=== PATIENT | male | born 1965 | race Caucasian/White ===

== ENCOUNTER 2023-04-22 07:55 | Emergency (ER) | payer BC ==
[~2023-04-22] VITALS: Ht 182.9 cm; Wt 93.2 kg
[2023-04-22 08:01] VITALS: TEMP 97.5
[2023-04-22 09:13] LABS: BASO % 0.8 % (0.0-2.0); EOS # 0.1 K/mm3 (0.0-0.7); EOS % 1.3 % (0.0-4.0); GRAN # 3.2 K/mm3 (1.4-6.5); GRAN % 68.7 % (42.2-75.2); HEMATOCRIT 42.6 % (42.0-52.0); LYMPH % 20.3 % (20.0-51.0); MEAN CELL VOLUME 96 fl (80.0-100.0); MEAN CORPUSCULAR HEMOGLOBIN 34 pg (27-31); MEAN CORPUSCULAR HGB CONC 35 g/dl (33.0-37.0); MONO # 0.4 K/mm3 (0.1-0.6); MONO % 8.5 % (1.7-9.3); PLATELET COUNT 213 K/mm3 (130-400); RED BLOOD COUNT 4.43 M/mm3 (4.20-5.60); REDCELL DISTRIBUTION WIDTH-CV 11.6 % (11.5-14.5)
[2023-04-22 09:35] LABS: ALANINE AMINOTRANSFERASE 18 U/L (0-55); ALBUMIN 3.6 gm/dL (3.5-5.0); ALKALINE PHOSPHATASE 49 U/L (40-150); ANION GAP 9 mmol/L (7-16); AST,SGOT 25 U/L (5-34); BILIRUBIN,TOTAL 1.8 mg/dL (0.2-1.2); BLOOD UREA NITROGEN 10 mg/dL (8-26); CALCIUM 9.1 mg/dL (8.4-10.2); CARBON DIOXIDE 22 mmol/L (22-29); CHLORIDE 107 mmol/L (98-107); CREATININE, serum 0.85 mg/dL (0.72-1.25); GLUCOSE 112 mg/dL (70-99); POTASSIUM 4.2 mmol/L (3.5-4.5); SODIUM 138 mmol/L (136-145); TOTAL PROTEIN 7.2 gm/dL (6.2-8.1)
[2023-04-22 09:43] LABS: TROPONIN-I < 0.010 ng/mL (0.00-0.033)
[2023-04-22] MEDS ORDERED: ELIQUIS 5MG PO (10:26)
[2023-04-22] MEDS ORDERED: TOPROL XL 25MG25 MG PO (10:26)
[2023-04-22] MEDS ORDERED: Apixaban 5 MG TAB PO ONE (10:30)
[2023-04-22 10:45] VITALS: BP 165/100; PULSE 66
== END 2023-04-22 10:46 | disposition home or self-care (01) ==
LOC: COL.ER 07:55
PROVIDERS: Family Medicine
DX: I48.92 Unspecified atrial flutter (principal)